=== PATIENT | male | born 1995 | race Caucasian/White ===

== ENCOUNTER 2016-11-28 02:00 | Emergency (ER) | payer OTHER ==
[2016-11-28] MEDS ORDERED: NS 0.9% 1000 ML* 2,000 ML IV ONE (02:05)
[2016-11-28 02:43] LABS: Hematocrit 45 % (42-52); Hemoglobin 15.1 g/dl (14.0-18.0); Mean Corpuscular HGB Conc 34 g/dl (31-36); Mean Corpuscular Hemoglobin 31 pg (27-31); Mean Corpuscular Volume 92 fL (80-94); Mean Platelet Volume 7 um3 (7.4-10.4); Red Blood Count 4.88 10^6/ul (4.0-5.4); Red Cell Distribution Width 14 % (10.5-15)
[2016-11-28 02:53] LABS: Urine Bacteria Absent (Absent); Urine Bilirubin Negative (Negative); Urine Glucose Negative (Negative); Urine Nitrite Negative (Negative)
[2016-11-28 02:59] LABS: Benzodiazepine Urine Screen None Detected (None Detect)
[2016-11-28 03:00] LABS: ALT 18 U/L (7-52); AST 20 U/L (13-39); Acetaminophen < 15 mcg/mL; Albumin 4.8 g/dL (3.2-5.2); Alkaline Phosphatase 82 U/L (34-104); Anion Gap 12 mmol/L (2-11); BUN/Creatinine Ratio 15.1 (8-20); Blood Urea Nitrogen 13 mg/dL (6-24); CO2 Carbon Dioxide 23 mmol/L (22-32); Calcium 9.8 mg/dL (8.6-10.3); Chloride 102 mmol/L (101-111); EGFR Non-African American 111.2 (>60); Globulin 3.2 g/dL (2-4); Glucose 94 mg/dL (70-100); Potassium 3.8 mmol/L (3.5-5.0); Salicylate < 2.50 mg/dL (<30); Sodium 137 mmol/L (133-145)
--- NOTE | 2016-11-28 03:01 | ED ---
alin Li Timothy, scribed for Dov Yeh MD on 11/28/16 at 0212 . Substance Abuse/Use - HPI Summary HPI Summary: LEVEL V CAVEAT: PT IS UNABLE TO GIVE A HISTORY Cresencio Anderson is a 21 yo male presenting to [facility] with an unknown drug overdose. He was found by his friends in an unresponsive state, who then called 911. Upon arrival of the fire department, he was quickly responsive to stimuli and can follow simple commands. Per EMS, he has only been able to communicate through the word "yes". No substances were found on scene by emergency services. Per EMS his vitals have been stable. His MHx is unknown. - History Of Current Complaint Chief Complaint: EDOverdose Stated Complaint: OVERDOSE Time Seen by Provider: 11/28/16 02:01 Hx Obtained From: EMS Hx From Patient Unobtainable Due To: Altered Mental Status Onset/Duration of Drug/ETOH Abuse: Hours - unknown Ingestion History: Type/Name Of Drug - unknown Severity Initially: Moderate Severity Currently: Moderate Character: Stuporous Associated Signs And Symptoms: Other: - repsonsive to stimuli - Allergies/Home Medications Allergies/Adverse Reactions: Allergies Allergy/AdvReac Type Severity Reaction Status Date / Time No Known Allergies Allergy Verified 11/28/16 07:28 Home Medications: Home Medications Unobtainable [Unobtainable] 11/28/16 [History Confirmed 11/28/16] PMH/Surg Hx/FS Hx/Imm Hx - Immunization History Date of Tetanus Vaccine: up to date Infectious Disease History: Denies: Traveled Outside the [place] in Last 30 Days - Family History Known Family History: Positive: Unknown - LEVEL V CAVEAT: PT IS UNABLE TO GIVE A HISTORY - Social History Alcohol Use: Weekly Substance Use Type: Reports: None Smoking Status (MU): Current Every Day Smoker - Additional Comments History Additional Comments: LEVEL V CAVEAT: PT IS UNABLE TO GIVE A HISTORY Review of Systems Neurological: Other - mildly responsive to stimuli All Other Systems Reviewed And Are Negative: No Physical Exam - Summary Physical Exam Summary: LEVEL V CAVEAT: PT IS UNABLE TO GIVE A HISTORY Triage Information Reviewed: Yes Vital Signs On Initial Exam: Initial Vitals Temp Pulse Resp BP Pulse Ox 97.8 F 94 16 126/62 99 11/28/16 02:05 11/28/16 02:05 11/28/16 02:05 11/28/16 02:05 11/28/16 02:05 Vital Signs Reviewed: Yes Appearance: Positive: Well-Appearing - arousable to noxious stimuli Skin: Positive: Warm Head/Face: Positive: Normal Head/Face Inspection Eyes: Positive: DANIEL ENT: Positive: Hearing grossly normal Neck: Positive: Supple Respiratory/Lung Sounds: Positive: Breath Sounds Present Cardiovascular: Positive: RRR Abdomen Description: Positive: Nontender, Soft Musculoskeletal: Positive: Strength/ROM Intact Neurological: Positive: Sensory/Motor Intact Diagnostics - Vital Signs Vital Signs Temp Pulse Resp BP Pulse Ox 11/28/16 02:05 97.8 F 94 16 126/62 99 - Laboratory Lab Results: Lab Results 11/28/16 11/28/16 11/28/16 Range/Units 02:30 02:39 02:39 WBC 8.0 (3.5-10.8) 10^3/ul RBC 4.88 (4.0-5.4) 10^6/ul Hgb 15.1 (14.0-18.0) g/dl Hct 45 (42-52) % MCV 92 (80-94) fL MCH 31 (27-31) pg MCHC 34 (31-36) g/dl RDW 14 (10.5-15) % Plt Count 271 (150-450) 10^3/ul MPV 7 L (7.4-10.4) um3 Neut % (Auto) 45.5 (38-83) % Lymph % (Auto) 41.9 (25-47) % George % (Auto) 7.9 (1-9) % Eos % (Auto) 4.0 (0-6) % Baso % (Auto) 0.7 (0-2) % Absolute Neuts (auto) 3.7 (1.5-7.7) 10^3/ul Absolute Lymphs (auto) 3.4 (1.0-4.8) 10^3/ul Absolute Monos (auto) 0.6 (0-0.8) 10^3/ul Absolute Eos (auto) 0.3 (0-0.6) 10^3/ul Absolute Basos (auto) 0.1 (0-0.2) 10^3/ul Absolute Nucleated RBC 0 10^3/ul Nucleated RBC % 0 Urine Color Colorless Urine Appearance Clear Urine pH 6.0 (5-9) Ur Specific [place] 1.002 L (1.010-1.030) Urine Protein Negative (Negative) Urine Ketones Negative (Negative) Urine Blood Negative (Negative) Urine Nitrate Negative (Negative) Urine Bilirubin Negative (Negative) Urine Urobilinogen Negative (Negative) Ur Leukocyte Esterase Trace H (Negative) Urine WBC (Auto) Absent (Absent) Urine RBC (Auto) Trace(0-2/hpf) (Absent) Urine Bacteria Absent (Absent) Urine Glucose Negative (Negative) Urine Opiates Screen Presumptive positive H (None Detect) Ur Barbiturates Screen None detected (None Detect) Ur Phencyclidine Scrn None detected (None Detect) Ur Amphetamines Screen Presumptive positive H (None Detect) U Benzodiazepines Scrn None detected (None Detect) Urine Cocaine Screen None detected (None Detect) U Cannabinoids Screen None detected (None Detect) Result Diagrams: 11/28/16 02:30 11/28/16 02:30 Lab Statement: Any lab studies that have been ordered have been reviewed, and results considered in the medical decision making process. - EKG 0213 Cardiac Rate: Tachycardia - 107 BPM EKG Interpretation: Sinus tachycardia @ 107 BPM. Course/Dx - Course Assessment/Plan: Cresencio Anderson is a 21 yo male presenting to [facility] with an overdose of an unknown drug, mildly responsive to stimuli and unable to effecedtively communicate. In the ED he was given IV fluids. His EKG showed sinus tachycardia @ 107 BPM. Pt will be signed out to Dr. Schroeder at 0700 pending Pt sobriety. - Diagnoses Provider Diagnoses: Alcohol intoxication Discharge - Discharge Plan Condition: Stable Disposition: OTHER Discharge Disposition Comment: signed out to Dr. Schroeder pending Pt sobriety Patient Education Materials: Abuse of Alcohol (ED), Polysubstance Abuse (ED) Referrals: [facility] ANN-MARIE Harris [Primary Care Provider] - 2 Days Additional Instructions: Please follow up with your primary care physician regarding your visit to the emergency department today. Return to the emergency department with any new or recurring symptoms. The documentation as recorded by the alin goff Timothy accurately reflects the service I personally performed and the decisions made by me, Dov Yeh MD.
[2016-11-28 03:04] LABS: Alcohol 403 mg/dL (<10)
[2016-11-28] MEDS ORDERED: NS 0.9% 1000 ML* 1,000 ML IV ONE (07:02)
[2016-11-28 14:01] VITALS: BP 101/34
== END 2016-11-28 14:32 | disposition home or self-care (01) ==
LOC: ED 02:00
DX: F10.129 Alcohol abuse with intoxication, unspecified (principal); Y90.8 Blood alcohol level of 240 mg/100 ml or more; F17.200 Nicotine dependence, unspecified, uncomplicated
CPT/HCPCS: 36415; 80053; 80307; 80320; 80329; 81003; 81015; 83605; 85025; 87086; 93005; 96360; 96361; 99285; G0480